=== PATIENT | female | born 1970 | race African-American/Black ===

== ENCOUNTER 2016-05-31 14:53 | Observation (INO) | payer MEDICARE, OTHER ==
--- NOTE | ~2016-05-31 | CO ---
Unit #: [id number] #: [id number] Patient: JULIA CORBIN [id number] [address] [address] [id number] I MR#: [id number] NAME: JULIA CORBIN ROOM: 218 Age: 46 Sex: F Admission Date: 05/31/2016 : 1970 Attending Physician: Noemi Cisse M.D. Consultation Date: 06/02/2016 CONSULTATION REPORT REASON FOR CONSULTATION Depression and anxiety. HISTORY OF PRESENT ILLNESS Ms. Julia Corbin is a 46-year-old female, seen on 06/02/2016 at [facility]. The patient reported having lot of problem with depression and anxiety. The patient reports that she has tried several different medication. The patient also received outpatient services through [facility]. The patient has a history of major depressive disorder, anxiety disorder. The patient denied any use of drugs or alcohol. The patient was admitted with a chief complaint of abdominal pain and pancreatitis symptoms on 05/31/2016. The patient denied any current suicidal or homicidal ideation. Denied any psychotic symptom. PAST PSYCHIATRIC HISTORY Remarkable for history of depression, history of posttraumatic stress disorder, and anxiety. MEDICAL HISTORY The patient has a history of pancreatitis. MEDICATIONS The patient is on Xanax, Phenergan, and [place]. FAMILY HISTORY AND SOCIAL HISTORY The patient reports that she has a good support system. Reported history of alcohol abuse in the past, but denied any recent use. The patient reported taking medication as prescribed hydrocodone and Xanax. Denied any abuse. REVIEW OF SYSTEMS Complete review of system is remarkable for anxiety. MENTAL STATUS EXAMINATION General appearance, the patient dressed casually. Attention span and concentration, fair. Speech, regular rate and coherent. Oriented in time, place, and person. Mood and affect were sad, dysphoric, anxious. Thought process, coherent and goal directed. Thought content, the patient denied any thoughts of harming self or others or any psychotic symptom. Recent and remote memory, fair. Language, able to name object, repeat phrases. Fund of knowledge, fair. Insight and judgment, fair to slightly impaired. Unit #: [id number] #: [id number] Patient: CORBIN,JULIA DIAGNOSES Psychiatric: Major depressive disorder, recurrent, severe, F33.2. Anxiety disorder, not otherwise specified, F40.01; agoraphobia with panic disorder, F40.01. Secondary diagnosis: Deferred. Medical diagnosis: None. Stressors: Psychosocial stressor. ASSESSMENT/PLAN 1. Supportive psychotherapy and psychoeducation provided to the patient. 2. Educated about benefits and side effects of medication and course and prognosis of illness. Advised Vistaril 25 mg t.i.d. for anxiety, Wellbutrin XL 150 mg in the morning for depression and doxepin 50 mg at bedtime for sleep. The patient was advised to follow up in IOP program telephone #[phone]. Dictated by... Katerin Chavira/jone TD: 06/05/2016 05:20 JOB #: [id number] CONSULTATION REPORT Page 1 of 1 X Ismael Garduno MD X CONSULTATION REPORT
--- NOTE | ~2016-05-31 | HP ---
Unit #: [id number] #: [id number] Patient: JULIA CORBIN [id number] [address] [place], [place] [address] [id number] I MR#: [id number] NAME: JULIA CORBIN ROOM: 76065 Age: 46 Sex: F Admission Date: 05/31/2016 : 1970 Attending Physician: Fidelia Yates M.D. HISTORY AND PHYSICAL CHIEF COMPLAINT Abdominal pain, history of pancreatitis. HISTORY OF PRESENT ILLNESS The patient is a 46-year-old female with past medical history of pancreatitis, alcohol abuse, anxiety, PTSD, who presented to the emergency department for evaluation of the above. The patient states that she quit drinking two weeks ago. Additionally, she was on Xanax and hydrocodone for anxiety and chronic pain respectively. She stopped taking those as well. She also quit smoking two weeks ago. She has had intermittent abdominal pain since that time. The pain is in the right side of her abdomen and epigastric region. She describes it as "sharp." It has been intermittent in nature. There are no exacerbating or alleviating factors. She states it is similar to when she has had pancreatitis in the past. She also reports vomiting in association with pain. She has had one bout of nonbloody emesis within the past 24 hours. She denies any diarrhea. She states that she has been feeling intermittently lightheaded. She has had several syncopal episodes with the most recent being on the day prior to admission. She states that she has felt lightheaded prior to the syncopal episode. She denies any chest pain. No difficulty breathing. She states that she has had an intermittently productive cough. Of note, the patient was seen at [place] emergency department as well as [facility] [place] [facility] emergency department within the past week. There are records on the chart from [facility] dated 05/21/2016. The patient had a CT of the abdomen and pelvis that showed findings consistent with chronic pancreatitis. Today, in the emergency department, pulse is 114. Laboratory is notable for normal amylase and lipase. Urine toxicology screen is positive for benzodiazepines, marijuana, barbiturates, tricyclics. She is being admitted to [facility] for evaluation and further treatment. PAST MEDICAL HISTORY 1. Admission to [facility] [place] [facility] within the past year for pancreatitis. 2. History of pancreatitis. 3. Anxiety depression. 4. PTSD. PAST SURGICAL HISTORY Tubal ligation. ALLERGIES Unit #: [id number] #: [id number] Patient: JULIA CORBIN 1. Oxycodone. 2. Propoxyphene. 3. Hydrocodone. HOME MEDICATIONS Include: 1. Xanax. 2. Phenergan. 3. [place]. Home medications will need to be reviewed and verified. SOCIAL HISTORY The patient has four children. She has previously been a daily drinker. She states that she drinks vodka and [place] daily. Her last drink was two weeks ago. She is a former smoker, she quit smoking two weeks ago. She reports marijuana use. She states that the hydrocodone and Xanax were prescribed medications. FAMILY HISTORY Notable for her mother having hypertension and diabetes. REVIEW OF SYSTEMS A complete review of systems is negative except as indicated in the HPI. The patient denies any suicidal or homicidal ideations. PHYSICAL EXAMINATION VITAL SIGNS: Temperature 98.2, pulse 114, respirations 14, blood pressure 117/83, oxygen saturation 100% on room air. GENERAL: The patient is an female who is sleeping but wakes to voice. HEENT: Head is atraumatic. Mucous membranes are moist. NECK: Supple. Trachea is midline. LUNGS: Clear to auscultation bilaterally with no increased work of breathing. HEART: Regular rate and rhythm. ABDOMEN: Soft. She is tender to palpation in the epigastric and right upper quadrant areas. Bowel sounds are present in all four quadrants. EXTREMITIES: Nontender with no pedal edema. NEUROLOGIC: Patient is awake and alert. She follows commands. PSYCHIATRIC: Mood and affect are normal. Patient is cooperative. SKIN OF EXAMINED AREAS: Warm and dry. DIAGNOSTIC STUDIES LABORATORY: Urine toxicology screen positive for benzodiazepines, marijuana, barbiturates, tricyclics. Urinalysis essentially normal. Beta HCG is negative. Comprehensive metabolic panel notable for AST 62, ALT 43, alkaline phosphatase 137, albumin 3.2. Amylase and lipase are normal. Alcohol level less than 5. Complete blood count notable for hemoglobin 11.9, hematocrit 37.1. PLAN 1. Admit to intermediate level for observation. 2. Alcohol withdrawal protocol. 3. P.r.n. Toradol. 4. P.r.n. Zofran. 5. Consult Dr. Garduno regarding alcohol abuse, anxiety, PTSD. 6. Fall precautions. Unit #: [id number] #: [id number] Patient: JULIA CORBIN 7. Orthostatics every shift. 8. 2D echo for further evaluation of syncope. 9. Check EKG and cardiac enzymes. 10. Will also check chest x-ray for further evaluation of cough and syncope. 11. Repeat labs in the morning. Dictated by Katerin Kyle/cresencio TD: 05/31/2016 22:55 JOB #: [id number] HISTORY AND PHYSICAL X Fidelia Yates MD X HISTORY AND PHYSICAL
--- NOTE | ~2016-05-31 | CR72 ---
[facility] A Service of [facility] RADIOLOGY TEXT RESULTS PATIENT: JULIA CORBIN LOCATION: [facility] : 74 UNIT #: [id number] AGE: [address]: Saranya Kemp MD SEX: F ORDER DR: [id number] [place], [place] [address] [id number] I MR#: [id number] Acc #: [id number] NAME: JULIA CORBIN : 1970 SEX: F STUDY DATE/TIME: 05/31/2016 20:04 UNIT: [facility] ROOM: 218 STUDY DESCRIPTION: CR Chest Single View Portable Attending Physician: Saranya Kemp M.D. Ordering Physician: Fidelia Yates M.D. MEDICAL IMAGING REPORT This report is preliminary unless electronic signature is present EXAM Portable chest. DATE OF EXAM 05/31/2016 INDICATIONS Syncope, cough, shortness of air for the past 2 weeks. PROCEDURE Frontal view chest. COMPARISON None. FINDINGS Heart size within normal limits. The lungs are clear. No pleural fluid. No pneumothorax. IMPRESSION No active process. Dictated by... Lencho Martínez M.D. THIS IS AN ELECTRONICALLY VERIFIED REPORT Lencho Martínez M.D. at 06/03/2016 7:22 AM EEJennifer/trini TD: 06/01/2016 16:18 JOB #: [id number] [facility] A Service of [facility] RADIOLOGY TEXT RESULTS PATIENT: JULIA CORBIN LOCATION: [facility] : 74 UNIT #: [id number] AGE: [address]: Saranya Kemp MD SEX: F ORDER DR: MEDICAL IMAGING REPORT COPY
--- NOTE | ~2016-05-31 | DS ---
Unit #: [id number] #: [id number] Patient: JULIA CORBIN [id number] [address] [address] [id number] I MR#: [id number] NAME: JULIA CORBIN ROOM: 218 Age: 46 Sex: F Admission Date: 05/31/2016 : 1970 Discharge Date: Attending Physician: Noemi Cisse M.D. DISCHARGE SUMMARY DISCHARGE DIAGNOSES 1. Acute on chronic pancreatitis. 2. Alcohol dependence with mild withdrawal. 3. Anxiety. 4. Depression. 5. Posttraumatic stress disorder. 6. Abdominal pain secondary to pancreatitis. 7. Transaminitis secondary to alcohol abuse with alcoholic hepatitis. 8. Smoking. 9. Hypokalemia. 10. Metabolic acidosis. 11. Hypocalcemia. 12. Mild anemia. 13. Polysubstance abuse. Urine tox screen positive for benzodiazepine, marijuana, barbiturate and TCA. CONSULTATIONS Dr. Garduno. PROCEDURES None. DIAGNOSTIC TESTING IMAGING: Chest x-ray shows no active disease. CARDIOVASCULAR: EKG - sinus rhythm with short P-R interval. LAB DATA: Sodium 138, potassium 3.4, carbon dioxide 20, creatinine 0.5. Troponin is 0.03. Urine drug screen positive for benzodiazepine, marijuana, barbiturate and TCA. Urinalysis shows no infection. Beta HCG is negative. ALLERGIES Acetaminophen. DISCHARGE MEDICATIONS 1. Doxepin 50 mg p.o. at bedtime. 2. Vistaril 50 mg t.i.d. 3. Nicotine 20 mg transdermal daily. 4. Thiamine 100 mg p.o. daily. 5. Multivitamin 1 tablet p.o. daily OTC. HOSPITALIZATION COURSE A 46 year old admitted because of abdominal pain. Unit #: [id number] #: [id number] Patient: JULIA CORBIN Acute on chronic pancreatitis from alcohol. Currently pain is better. No nausea or vomiting. Able to tolerate diet. Continue with low-fat diet at home. Alcohol dependence with mild withdrawal. Patient currently not having withdrawal symptoms. She was seen by Dr. Garduno. She will follow him as an outpatient. Currently she does not have any hallucinations. History of anxiety, depression and posttraumatic stress disorder with polysubstance abuse. The patient was seen by Dr. Garduno. He recommended doxepin, Vistaril and Wellbutrin. She said she does not want to take Wellbutrin because she is still trying to quit smoking. She will follow Dr. Garduno today for followup and change of medications. Smoking. Advised to quit. She will get nicotine. DISCHARGE PLAN 1. The patient will be discharged home. 2. Follow with family physician in 1 week. 3. Follow with Dr. Garduno as advised. NOTE: High risk of readmission if continues drinking alcohol. Dictated by... Katerin Lau/gay TD: 06/03/2016 12:29 JOB #: [id number] DISCHARGE SUMMARY X Noemi Cisse MD X DISCHARGE SUMMARY
--- NOTE | ~2016-05-31 | EKG ---
PATIENT: JULIA CORBIN UNIT #: [id number] Ventricular Rate: 94 BPM Atrial Rate: 94 BPM P-R Interval: 110 ms QRS Duration: 60 ms Q-T Interval: 366 ms QTC Calculation(Bezet): 457 ms P South Heart: 55 degrees Calculated R South Heart: 61 degrees Calculated T South Heart: 10 degrees Diagnosis Line: Sinus rhythm with short MS Diagnosis Line: T wave abnormality, consider anterior ischemia Diagnosis Line: Abnormal ECG Diagnosis Line: No previous ECGs available Diagnosis Line: Confirmed by ANGELIKA WANG MD ([id number]) on 06/03/2016 Diagnosis Line: 7:25:34 AM INTERPRETING MD: KATHLEEN ARORA
[~2016-05-31 14:53] MED LIST: CIPRO250 MG PO; PHENERGAN SUPP25 MG PO; PRILOSEC20 M1 PO; ZOFRAN2 MG/M1 SL
[2016-05-31] MEDS ORDERED: NO MEDICATIONS (15:15)
[2016-05-31 15:23] LABS: BASOPHIL% 0.7 % (0-2.5); EOSINOPHIL# 0.1 X10e3 (0-0.7); EOSINOPHIL% 0.9 % (0.0-7.0); HEMATOCRIT 37.1 % (35.0-45.0); HEMOGLOBIN 11.9 gm/dL (12.0-16.0); LYMPHOCYTE# 2.8 X10e3 (1.0-3.5); LYMPHOCYTE% 41.4 % (17.0-45.0); MEAN CELL VOLUME 97.9 FL (83-96); MEAN CORPUSCULAR HEMOGLOBIN 31.4 PG (28-34); MEAN PLATELET VOLUME 8.7 FL (6.5-11.5); MONOCYTE# 0.9 X10e3 (0-1.0); MONOCYTE% 14.2 % (3.0-12.0); NEUTROPHIL# 2.9 X10e3 (1.5-7.1); NEUTROPHIL% 42.8 % (40-75); PLATELET COUNT 244 X10e3 (140-420); RED BLOOD COUNT 3.79 X10e (3.90-5.30); RED CELL DISTRIBUTION WIDTH 19.5 % (11.0-15.5); WHITE BLOOD COUNT 6.7 X10e3 (4.0-10.5)
[2016-05-31 15:25] LABS: DIFF IND NO
[2016-05-31 16:04] LABS: ALBUMIN SERUM 3.2 g/dL (3.5-5.0); ALKALINE PHOSPHATASE 137 U/L (32-92); ALT (SGPT) 43 U/L (10-40); AST (SGOT) 62 U/L (10-42); BILIRUBIN, DIRECT 0.3 mg/dL (0.0-0.2); BILIRUBIN,INDIRECT 0.7 mg/dL (0.0-0.9); BLOOD UREA NITROGEN 8 mg/dL (9-23); BUN/CREATININE RATIO 11.42; CALCIUM SERUM 9.2 mg/dL (8.4-10.2); CARBON DIOXIDE 24 mmol/L (22-31); CHLORIDE 101 mmol/L (100-111); CREATININE SERUM 0.7 mg/dL (0.6-1.4); GLOM FILT RATE Estimated ABOVE60 mL/min (>60); GLUCOSE FASTING 99 mg/dL (70-110); LIPASE 10 U/L (22-51); POTASSIUM 4.1 mmol/L (3.5-5.1); PROTEIN TOTAL SERUM 6.6 g/dL (6.0-8.3); SODIUM 135 mmol/L (135-145)
[2016-05-31 16:06] LABS: ALCOHOL BLOOD <5 mg/dL (0); AMYLASE 2 U/L (0-46)
[2016-05-31 16:23] LABS: URINE SOURCE CLEAN CATCH
[2016-05-31 16:29] LABS: URINE APPEARANCE CLEAR; URINE BILIRUBIN NEG (NEG); URINE BLOOD NEG (NEG); URINE COLOR ORANGE; URINE GLUCOSE NEG (NEG); URINE KETONE NEG (NEG); URINE LEUKOCYTE ESTERASE NEG (NEG); URINE NITRATE NEG (NEG); URINE PROTEIN NEG (NEG); URINE SPECIFIC GRAVITY 1.013 (1.003-1.035); URINE UROBILINOGEN 0.2 MG/DL (NEG)
[2016-05-31 16:39] LABS: CULTURE INDICATED? NO
[2016-05-31 16:41] LABS: AMPHETAMINE NEG (NEG); BARBITURATES POS (NEG); BENZODIAZEPINES POS (NEG); COCAINE NEG (NEG); MARIJUANA POS (NEG); OPIATES NEG (NEG); TRICYCLIC ANTIDEPRESSANTS POS (NEG); U METHADONE NEG (NEG)
[2016-05-31 21:05] LABS: CK TOTAL 24 IU/L (26-140)
[2016-06-02 08:21] LABS: BLOOD UREA NITROGEN <5 mg/dL (9-23); CALCIUM SERUM 7.8 mg/dL (8.4-10.2); CARBON DIOXIDE 20 mmol/L (22-31); CHLORIDE 109 mmol/L (100-111); CREATININE SERUM 0.5 mg/dL (0.6-1.4); GLOM FILT RATE Estimated ABOVE60 mL/min (>60); GLUCOSE FASTING 127 mg/dL (70-110); POTASSIUM 3.4 mmol/L (3.5-5.1); SODIUM 138 mmol/L (135-145)
[2016-06-03] MEDS ORDERED: DOXEPIN HCL50 M1 PO (11:04)
[2016-06-03] MEDS ORDERED: HYDROXYZINE PAM25 M1 PO (11:05)
[2016-06-03] MEDS ORDERED: NICOTINE TRANSD21 MG TOP (11:08)
[2016-06-03] MEDS ORDERED: MULTI-VITAMIN1 EAC1 (11:10)
[2016-06-03] MEDS ORDERED: THIAMINE HCL100 M1 PO (11:10)
== END 2016-06-03 15:01 | disposition home or self-care (01) ==
LOC: CED 14:53 → CEDOF 19:25 → C2A 06-01 12:42
PROVIDERS: Emergency Medicine; Family Medicine; Internal Medicine Endocrinology, Diabetes & Metabolism
DX: K85.90 Acute pancreatitis without necrosis or infection, unspecified (principal); K86.1 Other chronic pancreatitis; F10.239 Alcohol dependence with withdrawal, unspecified; K70.10 Alcoholic hepatitis without ascites; F33.2 Major depressive disorder, recurrent severe without psychotic features; F40.01 Agoraphobia with panic disorder; F43.10 Post-traumatic stress disorder, unspecified; R74.0 Nonspecific elevation of levels of transaminase and lactic acid dehydrogenase [LDH]; E87.6 Hypokalemia; E87.2 Acidosis; E83.51 Hypocalcemia; D64.9 Anemia, unspecified; F19.10 Other psychoactive substance abuse, uncomplicated; I51.7 Cardiomegaly; Z87.891 Personal history of nicotine dependence; Z88.5 Allergy status to narcotic agent
CPT/HCPCS: 36415; 71010; 80048; 80076; 80307; 81003; 82150; 82550; 83690; 84484; 84703; 85025; 93005; 93306; 96361; 96372; 96374; 96375; 99285; G0378; G0480; J1885; J2405; J3411; J7042